=== PATIENT | female | born 1990 | race Caucasian/White ===

== ENCOUNTER 2018-01-26 22:23 | Emergency (ER) | payer SELFPAY ==
--- NOTE | 2018-01-26 23:19 | ER Document Report ---
ED General - General Chief Complaint: Abdominal Pain Stated Complaint: ABDOMINAL PAIN ,CHEST PAIN Time Seen by Provider: 01/26/18 23:17 Mode of Arrival: Ambulatory Information source: Patient Notes: 27-year-old female with 3 of PCOs presents with complaint of nausea, vomiting and abdominal pain. Patient states nausea started 3 days prior to arrival. She states her abdominal pain also started 3 days ago. She describes it as cramping, located in the suprapubic, and without radiation. Patient describes the pain as intermittent. She has not taken any medication for this. Patient denies any dysuria, hematuria, vaginal discharge. She is sexually active and is not currently on control but has had a tubal ligation after last 10 months ago. Patient denies fever, chills, chest pain, shortness of breath, recent travel, recent antibiotic use, sick contacts. Patient's last menstrual period was 12/24/2017. Patient denies concern for STD. TRAVEL OUTSIDE OF THE [place] IN LAST 30 DAYS: No - HPI Onset: Other Onset/Duration: Gradual, Intermittent Quality of pain: Cramping Associated symptoms: Nausea, Vomiting. denies: Chest pain, Diarrhea, Fever, Shortness of breath Exacerbated by: Denies Relieved by: Denies Similar symptoms previously: Yes - Yes when Recently seen / treated by doctor: No - Related Data Allergies/Adverse Reactions: kiwi [Kiwi (Actinidia Chinensis)] Allergy (Mild, Verified 01/26/18 22:23) Hives peanut [Peanut] Allergy (Mild, Verified 01/26/18 22:23) Hives Latex, Natural Rubber Allergy (Verified 01/26/18 22:23) Past Medical History - General Information source: Patient, [facility] Records - Social History Smoking Status: Never Smoker Frequency of alcohol use: Occasional Drug Abuse: None Lives with: Family Family History: Reviewed & Not Pertinent Patient has suicidal ideation: No Patient has homicidal ideation: No - Medical History Medical History: Negative Renal/ Medical History: Reports: Hx Kidney Stones Past Surgical History: Reports: Hx Section - Immunizations Hx Diphtheria, Pertussis, Tetanus Vaccination: Yes Review of Systems - Review of Systems Notes: REVIEW OF SYSTEMS: CONSTITUTIONAL : Denies fever, chills, or sweats. Denies recent illness. Denies weight loss, recent hospitalizations. EENT: Denies visula changes, eye pain. Denies nasal or sinus congestion or discharge. Denies sore throat, oral lesions, difficulty swallowing. CARDIOVASCULAR: Denies chest pain. Denies palpitations or racing or irregular heart beat. Denies lower extremity edema. RESPIRATORY: Denies cough, cold, or chest congestion. Denies shortness of breath, difficulty breathing, or wheezing. GASTROINTESTINAL: Denies abdominal distention. Denies or diarrhea. Denies blood in vomitus, stools, or per rectum. Denies black, tarry stools. Denies constipation. GENITOURINARY: Denies difficulty urinating, painful urination, burning, frequency, blood in urine, or vaginal discharge/bleeding. MUSCULOSKELETAL: Denies back or neck pain or stiffness. Denies joint pain or swelling. SKIN: Denies rash, lesions or sores. HEMATOLOGIC : Denies easy bruising or bleeding. LYMPHATIC: Denies swollen, enlarged glands. NEUROLOGICAL: Denies confusion or altered mental status. Denies passing out or loss of consciousness. Denies dizziness or lightheadedness. Denies headache. Denies weakness or paralysis or loss of use of either side. Denies problems with gait or speech. Denies sensory loss, numbness, or tingling. Denies seizures. PSYCHIATRIC: Denies anxiety or stress. Denies depression, suicidal ideation, or homicidal ideation. Physical Exam - Vital signs Vitals: Temp Pulse Resp BP Pulse Ox 99.1 F 90 20 113/70 99 01/26/18 22:44 01/26/18 22:44 01/26/18 22:44 01/26/18 22:44 01/26/18 22:44 - Notes Notes: PHYSICAL EXAMINATION: GENERAL: Well-appearing, well-nourished and in no acute distress. HEAD: Normocephalic, atraumatic. EYES: Pupils equal round and reactive to light, extraocular movements intact, conjunctiva are normal. ENT: Nares patent, oropharynx clear without exudates. Moist mucous membranes. NECK: Normal range of motion, supple without lymphadenopathy LUNGS: Breath sounds clear to auscultation bilaterally and equal. No wheezes rales or rhonchi. HEART: Regular rate and rhythm without murmurs ABDOMEN: Soft, nontender, nondistended abdomen. No guarding, no rebound. No masses appreciated. Female : No external vaginal lesion, no vaginal bleeding, no discharge, No CMT. OS closed. No adenexal tenderness Musculoskeletal: Normal range of motion, no pitting or edema. No cyanosis. NEUROLOGICAL: Cranial nerves grossly intact. Normal speech, normal gait. Normal sensory, motor exams PSYCH: Normal mood, normal affect. SKIN: Warm, Dry, normal turgor, no rashes or lesions noted. Course - Re-evaluation Re-evalutation: Laboratory 01/26/18 01/26/18 01/27/18 22:45 22:45 00:01 WBC 9.7 RBC 4.49 Hgb 11.9 L Hct 36.4 MCV 81 MCH 26.4 L MCHC 32.7 RDW 15.3 H Plt Count 250 Seg Neutrophils % 62.0 Lymphocytes % 31.7 Monocytes % 5.4 Eosinophils % 0.5 Basophils % 0.4 Absolute Neutrophils 6.0 Absolute Lymphocytes 3.1 Absolute Monocytes 0.5 Absolute Eosinophils 0.1 Absolute Basophils 0.0 Sodium Potassium Chloride Carbon Dioxide Anion Gap BUN Creatinine Est GFR ( Amer) Est GFR (Non-Af Amer) Glucose Calcium Total Bilirubin Direct Bilirubin Neonat Total Bilirubin Neonat Direct Bilirubin Neonat Indirect Bili AST ALT Alkaline Phosphatase Total Protein Albumin Beta HCG, Quant Total Beta HCG Urine Color YELLOW Urine Appearance CLEAR Urine pH 5.0 Ur Specific [place] 1.015 Urine Protein NEGATIVE Urine Glucose (UA) NEGATIVE Urine Ketones NEGATIVE Urine Blood NEGATIVE Urine Nitrite NEGATIVE Urine Bilirubin NEGATIVE Urine Urobilinogen NEGATIVE Ur Leukocyte Esterase NEGATIVE Urine WBC (Auto) 4 Urine RBC (Auto) 1 U Hyaline Cast (Auto) 1 Urine Bacteria (Auto) 2+ Squamous Epi Cells Auto 1 Urine Mucus (Auto) FEW Urine Ascorbic Acid NEGATIVE Urine HCG, Qual POSITIVE H Trichomonas (Wet Prep) Vaginal WBC Vaginal Yeast Chlamydia DNA (PCR) N.gonorrhoeae DNA (PCR) Blood Type Rhogam Indicated 01/27/18 01/27/18 01/27/18 00:01 00:01 00:12 WBC RBC Hgb Hct MCV MCH MCHC RDW Plt Count Seg Neutrophils % Lymphocytes % Monocytes % Eosinophils % Basophils % Absolute Neutrophils Absolute Lymphocytes Absolute Monocytes Absolute Eosinophils Absolute Basophils Sodium 141.5 Potassium 3.7 Chloride 107 Carbon Dioxide 24 Anion Gap 11 BUN 8 Creatinine 0.73 Est GFR ( Amer) > 60 Est GFR (Non-Af Amer) > 60 Glucose 109 Calcium 9.4 Total Bilirubin 0.2 Direct Bilirubin 0.2 Neonat Total Bilirubin Not Reportable Neonat Direct Bilirubin Not Reportable Neonat Indirect Bili Not Reportable AST 18 ALT 33 Alkaline Phosphatase 74 Total Protein 7.1 Albumin 4.0 Beta HCG, Quant 55.96 H Total Beta HCG POSITIVE Urine Color Urine Appearance Urine pH Ur Specific [place] Urine Protein Urine Glucose (UA) Urine Ketones Urine Blood Urine Nitrite Urine Bilirubin Urine Urobilinogen Ur Leukocyte Esterase Urine WBC (Auto) Urine RBC (Auto) U Hyaline Cast (Auto) Urine Bacteria (Auto) Squamous Epi Cells Auto Urine Mucus (Auto) Urine Ascorbic Acid Urine HCG, Qual Trichomonas (Wet Prep) Vaginal WBC Vaginal Yeast Chlamydia DNA (PCR) NOT DETECTED N.gonorrhoeae DNA (PCR) NOT DETECTED Blood Type Rhogam Indicated 01/27/18 01/27/18 01/27/18 00:12 01:44 04:14 WBC RBC Hgb Hct MCV MCH MCHC RDW Plt Count Seg Neutrophils % Lymphocytes % Monocytes % Eosinophils % Basophils % Absolute Neutrophils Absolute Lymphocytes Absolute Monocytes Absolute Eosinophils Absolute Basophils Sodium Potassium Chloride Carbon Dioxide Anion Gap BUN Creatinine Est GFR ( Amer) Est GFR (Non-Af Amer) Glucose Calcium Total Bilirubin Direct Bilirubin Neonat Total Bilirubin Neonat Direct Bilirubin Neonat Indirect Bili AST ALT Alkaline Phosphatase Total Protein Albumin Beta HCG, Quant 53.39 H Total Beta HCG POSITIVE Urine Color Urine Appearance Urine pH Ur Specific [place] Urine Protein Urine Glucose (UA) Urine Ketones Urine Blood Urine Nitrite Urine Bilirubin Urine Urobilinogen Ur Leukocyte Esterase Urine WBC (Auto) Urine RBC (Auto) U Hyaline Cast (Auto) Urine Bacteria (Auto) Squamous Epi Cells Auto Urine Mucus (Auto) Urine Ascorbic Acid Urine HCG, Qual Trichomonas (Wet Prep) NO TRICHOMONAS SEEN Vaginal WBC RARE WBCS SEEN Vaginal Yeast NO YEAST SEEN Chlamydia DNA (PCR) N.gonorrhoeae DNA (PCR) Blood Type A POSITIVE Rhogam Indicated RHOGAM NOT INDICATED Obstetrics Ultrasound 01/27/18 01:24 IMPRESSION: No intrauterine confirmed. Differential diagnosis includes early viable intrauterine gestation, gestational loss, and occult ECTOPIC gestation. Recommend 48 -72 hours laboratory/sonographic surveillance. 27-year-old female with 3 of PCOs presents with complaint of nausea, vomiting and abdominal pain. Patient states nausea started 3 days prior to arrival. She states her abdominal pain also started 3 days ago. She describes it as cramping, located in the suprapubic, and without radiation. Patient was seen by myself upon arrival. Vital signs were reviewed. Patient is afebrile, normotensive and not hypoxic. Patient does not appear toxic or dehydrated. They are in no acute distress. Previous medical records and nursing notes reviewed. Significant findings include positive urine hCG and a beta quant of 55. Pelvic exam performed and without vaginal bleeding, vaginal discharge. Trans-vaginal ultrasound obtained, reviewed. Ultrasound reading was delayed so I did contact [employer] nutrition manager and requested their review of the images. 01/27/18 03:45 Spoke to OB nutrition manager who agrees to review the ultrasound. There is obvious concern for a female with history of tubal ligation and a positive for possible ectopic. Dr. Gregorio David states that with a quant of 55 her only recommendation at this time is pain control, repeat hCG and possible reevaluation with ultrasound once quant is over 2000. 01/27/18 03:55 Dr. Gregorio David from [employer] called me after reviewing patient's transvaginal ultrasound. She states that there is a gestational sac in the uterus but is surprised that we are able to see anything with a quant of 55. She recommends repeat quant at this time, as she is suspicious of lab error. Still her recommendations at this time are pain control, repeat quant in 48 hours and repeat ultrasound after quant has reached 2000 or greater Patient provided the opportunity to ask questions, and express concerns. Discharge instructions discussed. Patient is agreeable with discharge home. Return indications explained and discussed with the patient who displays understanding. Patient encouraged to return to the emergency department immediately with any concerns.. Ultrasound report not available upon time of discharge. Repeat HCG still 55. Patient urged to return with worsening pain, vaginal bleeding. Orders for repeat hCG in 48 hours were placed. Will contact the patient regarding recommendations for repeat ultrasound as well in 48-72 hours. Patient remained hemodynamically stable throughout her ED course. She did receive Zofran for nausea. She has had no vaginal bleeding, episodes of vomiting. We will follow the patient to encourage repeat testing as discussed repeat quant and ultrasound in 48-72 hours and when quant 2000-U/S. 01/27/18 08:01 01/27/18 08:06 01/27/18 08:06 01/28/18 21:56 - Vital Signs Vital signs: Temp Pulse Resp BP Pulse Ox 99.1 F 82 18 117/72 98 01/26/18 22:44 01/27/18 05:17 01/27/18 05:17 01/27/18 05:17 01/27/18 05:17 - Laboratory Result Diagrams: 01/27/18 00:01 01/27/18 00:01 Laboratory results interpreted by me: 01/26/18 01/27/18 01/27/18 22:45 00:01 00:01 Hgb 11.9 L MCH 26.4 L RDW 15.3 H Beta HCG, Quant 55.96 H Urine HCG, Qual POSITIVE H 01/27/18 04:14 Hgb MCH RDW Beta HCG, Quant 53.39 H Urine HCG, Qual - Diagnostic Test Radiology reviewed: Image reviewed Discharge - Discharge Clinical Impression: First trimester , Abdominal pain during in first trimester Nausea & vomiting Qualifiers: Vomiting type: unspecified Vomiting Intractability: non-intractable Qualified Code(s): R11.2 - Nausea with vomiting, unspecified Condition: Good Disposition: HOME, SELF-CARE Instructions: Pelvic Pain in ([facility]), Vomiting ([facility]) Additional Instructions: Please return immediately to the emergency department if you experience worsening pain, vaginal bleeding. Please return and 48 hours for repeat hormone level. Please report to the ER administrative assistant front desk and tell them that you are here for repeat laboratory testing. Prescriptions: Ondansetron [Zofran Odt 4 mg Tablet] 1 tab PO Q4H PRN #15 tab.rapdis PRN Reason: For Nausea/Vomiting Forms: Follow-Up Laboratory Testing Referrals: KRISTAL NGUYEN NP [NURSE PRACTITIONER] - Follow up as needed HALEY MURPHY MD [[facility]] - Follow up in 3-5 days [facility] [NO [facility]AL MD] - Follow up as needed
[2018-01-26 23:24] LABS: APPEARANCE,URINE CLEAR; BILIRUBIN,URINE NEGATIVE (NEGATIVE); COLOR,URINE YELLOW; GLUCOSE, URINE NEGATIVE (NEGATIVE); KETONES,URINE NEGATIVE (NEGATIVE); LEUKOCYTE ESTERASE,URINE NEGATIVE (NEGATIVE); NITRITE,URINE NEGATIVE (NEGATIVE); PROTEIN,URINE NEGATIVE (NEGATIVE); URINE SPECIFIC GRAVITY 1.015; UROBILINOGEN,URINE NEGATIVE mg/dL (<2.0)
[2018-01-27 00:12] LABS: ABSOLUTE EOSINOPHILS # (AUTO) 0.1 10^3/uL (0.0-0.6); ABSOLUTE LYMPHOCYTES (AUTO) 3.1 10^3/uL (0.5-4.7); ABSOLUTE MONOCYTES (AUTO) 0.5 10^3/uL (0.1-1.4); BASOPHILS % (AUTO) 0.4 % (0-2); EOSINOPHILS % (AUTO) 0.5 % (0-6); HEMATOCRIT 36.4 % (36.0-47.0); HEMOGLOBIN 11.9 g/dL (12.0-15.5); LYMPHOCYTES % (AUTO) 31.7 % (13-45); MEAN CORPUSCULAR HEMOGLOBIN 26.4 pg (27.0-33.4); MEAN CORPUSCULAR HGB CONC 32.7 g/dL (32.0-36.0); MEAN CORPUSCULAR VOLUME 81 fl (80-97); MONOCYTES % (AUTO) 5.4 % (3-13); PLATELET COUNT 250 10^3/uL (150-450); RED BLOOD COUNT 4.49 10^6/uL (3.72-5.28); RED CELL DISTRIBUTION WIDTH 15.3 % (11.5-14.0); TOTAL CELLS COUNTED % (AUTO) 100 %; WHITE BLOOD COUNT 9.7 10^3/uL (4.0-10.5)
[2018-01-27 00:30] LABS: T.VAGINALIS (WET MOUNT) NO TRICHOMONAS SEEN; WBCS (WET MOUNT) RARE WBCS SEEN; YEAST (WET MOUNT) NO YEAST SEEN
[2018-01-27 00:46] LABS: ALANINE AMINOTRANSFERASE 33 U/L (9-52); ALKALINE PHOSPHATASE 74 U/L (38-126); ANION GAP 11 (5-19); ASPARTATE AMINO TRANSFERASE 18 U/L (14-36); BILIRUBIN,DIRECT 0.2 mg/dL (0.0-0.4); BILIRUBIN,TOTAL 0.2 mg/dL (0.2-1.3); BLOOD UREA NITROGEN 8 mg/dL (7-20); CALCIUM 9.4 mg/dL (8.4-10.2); CARBON DIOXIDE 24 mmol/L (22-30); CHLORIDE 107 mmol/L (98-107); GLUCOSE 109 mg/dL (75-110); POTASSIUM 3.7 mmol/L (3.6-5.0); SODIUM 141.5 mmol/L (137-145); TOTAL PROTEIN 7.1 g/dL (6.3-8.2)
[2018-01-27 01:56] LABS: CHLAM PCR NOT DETECTED (NOT DETECT); GON PCR NOT DETECTED (NOT DETECT)
[2018-01-27] MEDS ORDERED: ONDANSETRON 4 MG TAB.RAPDIS PO ONE (04:19)
--- NOTE | 2018-01-27 05:16 | RADIOLOGY REPORT (SQ) ---
EXAM DESCRIPTION: US TRANSVAGINAL CLINICAL HISTORY: 27 years Female, + and h/o tubal ligation Comparison: None. TECHNIQUE: Transvaginal. LIMITATIONS: None. FINDINGS: No intrauterine gestation confirmed. There is an irregular intrauterine cystic fluid collection with possible decidual reaction which may indicate an irregualar gestational sac; if it were viable, mean sac diameter of 8.2 mm corresponds with gestational age of five weeks and four days. No pole. No cardiac activity. No yolk sac. 2.8-cm right ovary, 3.9-cm left ovary, 1.9-cm possible left corpus luteum, 3.9-cm cervical length, and minimal free fluid. IMPRESSION: No intrauterine confirmed. Differential diagnosis includes early viable intrauterine gestation, gestational loss, and occult ECTOPIC gestation. Recommend 48 -72 hours laboratory/sonographic surveillance.
[2018-01-27 05:19] VITALS: BP 117/72
== END 2018-01-27 05:13 | disposition home or self-care (01) ==
LOC: ER 22:23
DX: O26.891 Other specified pregnancy related conditions, first trimester (principal); R10.30 Lower abdominal pain, unspecified; O21.9 Vomiting of pregnancy, unspecified; Z3A.01 Less than 8 weeks gestation of pregnancy; Z98.51 Tubal ligation status; Z87.442 Personal history of urinary calculi; Z91.018 Allergy to other foods; Z91.010 Allergy to peanuts; Z91.040 Latex allergy status
CPT/HCPCS: 99284; 86900; 86901; 36415; 87210; 84702; 85025; 81025; 80053; 81001; 87491; 87591; 76817; S0119

== ENCOUNTER → 2018-01-29 | Outpatient (CLI) | payer MEDICAID | LOC: LAB 13:59 | PROVIDERS: ATTEND Student in an Organized Health Care Education/Training Program | DX: O26.899 Other specified pregnancy related conditions, unspecified trimester (principal); R10.2 Pelvic and perineal pain | CPT/HCPCS: 36415; 84702 ==

== ENCOUNTER 2018-01-31 16:15 | Emergency (ER) | payer OTHER, MEDICAID ==
--- NOTE | 2018-01-31 17:01 | ER Document Report ---
ED Medical Screen (RME) - General Chief Complaint: OB Problem (<20wks) Stated Complaint: ABNORMAL LABS Time Seen by Provider: 01/31/18 16:55 Notes: RAPID MEDICAL EVALUATION DISCLOSURE I have seen this patient as part of a Rapid Medical Evaluation and, if applicable, placed any initially appropriate orders. The patient will be seen and fully evaluated, including a full history and physical exam, by a provider ( in Main ED or Fast Track) when a room becomes available. 27-year-old female PMH tubal ligation last year here because of elevated hCG levels over the past 1-2 weeks. She has been here several times and has had a progressively increasing has had a progressively increasing progressively increase hCG level. She was told to come back here for a repeat hCG level and transvaginal ultrasound. She does not complain of any current abdominal pain discharge or bleeding. TRAVEL OUTSIDE OF THE [place] IN LAST 30 DAYS: No - Related Data Allergies/Adverse Reactions: kiwi [Kiwi (Actinidia Chinensis)] Allergy (Mild, Verified 01/31/18 16:17) Hives peanut [Peanut] Allergy (Mild, Verified 01/31/18 16:17) Hives Latex, Natural Rubber Allergy (Verified 01/31/18 16:17) Past Medical History - Social History Chew tobacco use (# tins/day): No Frequency of alcohol use: Rare Drug Abuse: None Renal/ Medical History: Reports: Hx Kidney Stones. Denies: Hx Peritoneal Dialysis Past Surgical History: Reports: Hx Section - Immunizations Hx Diphtheria, Pertussis, Tetanus Vaccination: Yes Physical Exam - Vital signs Vitals: Temp Pulse Resp BP Pulse Ox 98.3 F 79 16 121/70 100 01/31/18 16:19 01/31/18 16:19 01/31/18 16:19 01/31/18 16:19 01/31/18 16:19 Course - Vital Signs Vital signs: Temp Pulse Resp BP Pulse Ox 98.3 F 79 16 121/70 100 01/31/18 16:19 01/31/18 16:19 01/31/18 16:19 01/31/18 16:19 01/31/18 16:19
[2018-01-31 17:25] LABS: ABSOLUTE EOSINOPHILS # (AUTO) 0.1 10^3/uL (0.0-0.6); ABSOLUTE LYMPHOCYTES (AUTO) 2.7 10^3/uL (0.5-4.7); ABSOLUTE MONOCYTES (AUTO) 0.5 10^3/uL (0.1-1.4); ABSOLUTE NEUT (AUTO) 4.5 10^3/uL (1.7-8.2); BASOPHILS % (AUTO) 0.3 % (0-2); EOSINOPHILS % (AUTO) 0.8 % (0-6); HEMATOCRIT 36.2 % (36.0-47.0); LYMPHOCYTES % (AUTO) 34.2 % (13-45); MEAN CORPUSCULAR HEMOGLOBIN 27.1 pg (27.0-33.4); MEAN CORPUSCULAR HGB CONC 33.3 g/dL (32.0-36.0); MEAN CORPUSCULAR VOLUME 81 fl (80-97); MONOCYTES % (AUTO) 6.5 % (3-13); PLATELET COUNT 245 10^3/uL (150-450); RED BLOOD COUNT 4.45 10^6/uL (3.72-5.28); RED CELL DISTRIBUTION WIDTH 15.1 % (11.5-14.0); SEGMENTED NEUTROPHILS % (AUTO) 58.2 % (42-78); TOTAL CELLS COUNTED % (AUTO) 100 %; WHITE BLOOD COUNT 7.8 10^3/uL (4.0-10.5)
--- NOTE | 2018-01-31 17:34 | ER Document Report ---
ED General - General Chief Complaint: OB Problem (<20wks) Stated Complaint: ABNORMAL LABS Time Seen by Provider: 01/31/18 16:55 TRAVEL OUTSIDE OF THE [place] IN LAST 30 DAYS: No - HPI Notes: Patient is a 27-year-old female G 14 P3 with a history of polycystic ovarian syndrome who presents to the ED for reevaluation as she has had elevated hCG and questionable gestational sac on ultrasound about 4 days ago. She was last evaluated 5 days ago here in the emergency department. Patient states that aside from some nausea she is otherwise asymptomatic. She is still eating and drinking without difficulties. She is urinating charge, odor, or bleeding. Patient had a pelvic exam performed at last visit with STD testing which was all unremarkable. No other concerns or complaints at this time. Denies any headache, fever, URI, sore throat, chest pain, palpitations, syncope, cough, shortness of breath, wheeze, dyspnea, abdominal pain, vomiting/diarrhea, urinary retention, dysuria, hematuria, back pain, loss of control of bowel or bladder, numbness/tingling, saddle anesthesia, muscle paralysis/weakness, or rash. - Related Data Allergies/Adverse Reactions: kiwi [Kiwi (Actinidia Chinensis)] Allergy (Mild, Verified 01/31/18 16:17) Hives peanut [Peanut] Allergy (Mild, Verified 01/31/18 16:17) Hives Latex, Natural Rubber Allergy (Verified 01/31/18 16:17) Past Medical History - Social History Smoking Status: Former Smoker Chew tobacco use (# tins/day): No Frequency of alcohol use: Rare Drug Abuse: None Family History: Reviewed & Not Pertinent Patient has suicidal ideation: No Patient has homicidal ideation: No Renal/ Medical History: Reports: Hx Kidney Stones. Denies: Hx Peritoneal Dialysis Past Surgical History: Reports: Hx Section - Immunizations Hx Diphtheria, Pertussis, Tetanus Vaccination: Yes Review of Systems - Review of Systems -: Yes All other systems reviewed and negative Physical Exam - Vital signs Vitals: Temp Pulse Resp BP Pulse Ox 98.3 F 79 16 121/70 100 01/31/18 16:19 01/31/18 16:19 01/31/18 16:19 01/31/18 16:19 01/31/18 16:19 - Notes Notes: PHYSICAL EXAMINATION: GENERAL: Well-appearing, well-nourished and in no acute distress. LUNGS: Breath sounds clear to auscultation bilaterally and equal. No wheezes rales or rhonchi. HEART: Regular rate and rhythm without murmurs, rubs, gallops. ABDOMEN: Soft, nontender, nondistended abdomen. No guarding, no rebound. No masses appreciated. Normal bowel sounds present. No CVA tenderness bilaterally. : deferred Extremities: No cyanosis, clubbing, or edema b/l. Peripheral pulses 2+. Capillary refill less than 3 seconds. NEUROLOGICAL: Normal speech, normal gait. PSYCH: Normal mood, normal affect. SKIN: Warm, Dry, normal turgor, no rashes or lesions noted. Course - Re-evaluation Re-evalutation: 01/31/18 20:27 Patient is an afebrile, well-hydrated, 27-year-old female who presents to the ED with an atypical positive hCG and ultrasound results. Vitals are acceptable without any significant tachycardia, tachypnea, or hypoxia. PE is otherwise unremarkable. Patient is otherwise asymptomatic aside from intermittent nausea. She is nontoxic-appearing and is tolerating p.o. without difficulties. Patient's quantitative hCG did increase by only 20 over the last 2 days to 140. Her transvaginal ultrasound does show an 11 mm gestational sac without yolk sac or poles noted. I did review this with Dr. Rodriguez, [facility], who agrees that this is not a typical presentation of a and that she should be evaluated in their office. Patient's abdomen is otherwise soft and nontender. Low suspicion for acute appendicitis, bowel obstruction, acute cholecystitis, acute cholangitis, perforated diverticulitis, incarcerated hernia , pancreatitis, perforated ulcer, peritonitis, sepsis, pelvic inflammatory disease, tubo-ovarian abscess, or other systemic emergent condition at this time. Patient is aware that her condition can change from initial presentation and she needs to monitor symptoms closely and seek medical attention if any acute changes. Rx for zofran. Conservative measures otherwise for symptoms. Recheck with OBGYN in 2-3 days. Recheck with your PCM in 2-3 days. Return to the ED with any worsening/concerning symptoms otherwise as reviewed in discharge. Patient is in agreement. - Vital Signs Vital signs: Temp Pulse Resp BP Pulse Ox 98.3 F 79 16 121/70 100 01/31/18 16:19 01/31/18 16:19 01/31/18 16:19 01/31/18 16:19 01/31/18 16:19 - Laboratory Result Diagrams: 01/31/18 17:00 01/31/18 17:00 Laboratory results interpreted by me: 01/31/18 01/31/18 17:00 17:00 RDW 15.1 H Chloride 108 H Total Bilirubin < 0.1 L Beta HCG, Quant 140.72 H Discharge - Discharge Clinical Impression: Elevated serum hCG Qualifiers: Weeks of gestation: unspecified Qualified Code(s): Z34.90 - Encounter for supervision of normal , unspecified, unspecified trimester Condition: Stable Disposition: HOME, SELF-CARE Additional Instructions: Maintain adequate fluid and food intake [place] diet ([employer] Bananas, rice, apples, toast, etc Zofran as needed tylenol if needed Monitor for any worsening symptoms Make sure you are staying hydrated enough to urinate and have normal BM's Recheck with your PCM in 2-3 days Call the women's clinic tomorrow to schedule an appointment for further evaluation and management* Return to the ED with any worsening symptoms and/or development of fever, headache, chest pain, palpitations, syncope, shortness of breath, trouble breathing, abdominal pain, n/v/d, blood in stool/urine, weakness, or other worsening symptoms that are concerning to you. Prescriptions: Ondansetron [Zofran Odt 4 mg Tablet] 1 - 2 tab PO Q4H PRN #15 tab.rapdis PRN Reason: For Nausea/Vomiting Referrals: FLAVIA RODRIGUEZ MD [ACTIVE STAFF] - Follow up in 3-5 days
[2018-01-31 17:45] LABS: ALANINE AMINOTRANSFERASE 31 U/L (9-52); ALBUMIN 4.1 g/dL (3.5-5.0); ALKALINE PHOSPHATASE 74 U/L (38-126); ANION GAP 12 (5-19); ASPARTATE AMINO TRANSFERASE 18 U/L (14-36); BLOOD UREA NITROGEN 8 mg/dL (7-20); CALCIUM 9.4 mg/dL (8.4-10.2); CARBON DIOXIDE 23 mmol/L (22-30); CHLORIDE 108 mmol/L (98-107); GLUCOSE 79 mg/dL (75-110); TOTAL PROTEIN 7.2 g/dL (6.3-8.2)
[2018-01-31 18:07] LABS: BILIRUBIN,TOTAL < 0.1 mg/dL (0.2-1.3)
--- NOTE | 2018-01-31 20:09 | RADIOLOGY REPORT (SQ) ---
EXAM DESCRIPTION: U/S OB TRANSVAGINAL W/O DOP COMPLETED DATE/TIME: 01/31/2018 7:42 pm REASON FOR STUDY: s/p TBL, now +HCG; eval tubal COMPARISON: None. TECHNIQUE: Transvaginal static and realtime grayscale images acquired of the pelvis. Additional alvaro cted spectral and color Doppler images recorded. All images stored on PACs. [facility] CLINICAL DATES: 5 weeks 3 days LIMITATIONS: None. FINDINGS: 11 mm irregular intrauterine presumed gestational sac without yolk sac or discrete p ole identified. UTERUS: No masses. No anomalies. CERVICAL LENGTH: 3.6 cm Closed. RIGHT ADNEXA: Ovary not identified. Small amount of right adnexal free fluid. No adnexal masses identified. LEFT ADNEXA: Normal ovary with normal vascular flow. No adnexal free fluid. No adnexal masses. FREE FLUID: Right adnexal and cul-de-sac free fluid. OTHER: No other significant finding. IMPRESSION: 11 mm irregular intrauterine presumed gestational sac without yolk sac or discrete pole identified. Right adnexal and cul-de-sac free fluid. No adnexal masses identified. Ectopic pr egnancy cannot be excluded, Close follow-up recommended. Trimester of : First - 0 to 13 weeks. TECHNICAL DOCUMENTATION: JOB ID: [id number] 2010 [employer]- All Rights Reserved rev-01/04 Reading location - IP/workstation name: [email or web address]
[2018-01-31 20:53] VITALS: BP 116/78
== END 2018-01-31 20:45 | disposition home or self-care (01) ==
LOC: ER 16:15
DX: O26.91 Pregnancy related conditions, unspecified, first trimester (principal); Z3A.01 Less than 8 weeks gestation of pregnancy; Z91.040 Latex allergy status; Z91.010 Allergy to peanuts; Z91.018 Allergy to other foods; Z87.442 Personal history of urinary calculi
CPT/HCPCS: 36415; 76817; 80053; 84702; 85025; 99284

== ENCOUNTER 2019-07-22 13:59 | Emergency (ER) | payer MEDICAID ==
[2019-07-22] MEDS ORDERED: ONDANSETRON HCL INJ/PF 4 MG/2 ML SDV IV ONE (14:19)
[2019-07-22] MEDS ORDERED: NORMAL SALINE 1000 ML 1,000 ML IV ONE (14:19)
--- NOTE | 2019-07-22 14:19 | ER Document Report ---
ED Medical Screen (RME) - General Chief Complaint: Vomiting Stated Complaint: FEVER,SYNCOPE,VOMITING Time Seen by Provider: 07/22/19 14:13 TRAVEL OUTSIDE OF THE [place] IN LAST 30 DAYS: No - HPI Notes: 07/22/19 14:17 Patient is a 29-year-old female with history of hysterectomy presents complaining of nausea, vomiting, incisional site pain or hysterectomy was performed in December for the past couple weeks. She has not noticed any redness or purulence to the incision site. Patient states that she has had intermittent fevers and chills and near syncopal episode 2 days ago. She has had decreased p.o. intake. She still urinating normally and having normal bowel movements. No chest pain or shortness of breath. I have treated and performed a rapid initial assessment of this patient. A comprehensive ED assessment and evaluation of the patient, analysis of test results and completion of medical decision making process will be conducted by additional ED providers. PHYSICAL EXAMINATION: GENERAL: Well-appearing, well-nourished and in no acute distress. A&Ox4. Answers questions appropriately. Heart: RRR Lungs: CTAB - Related Data Allergies/Adverse Reactions: bee venom protein (honey bee) Allergy (Severe, Verified 07/22/19 14:10) Swelling of Throat kiwi [Kiwi (Actinidia Chinensis)] Allergy (Mild, Verified 07/22/19 14:09) Hives peanut [Peanut] Allergy (Mild, Verified 07/22/19 14:09) Hives Latex, Natural Rubber Allergy (Verified 07/22/19 14:09) Past Medical History Renal/ Medical History: Reports: Hx Kidney Stones. Denies: Hx Peritoneal Dialysis Past Surgical History: Reports: Hx Section - Immunizations Hx Diphtheria, Pertussis, Tetanus Vaccination: Yes Physical Exam - Vital signs Vitals: Temp Pulse Resp BP Pulse Ox 97.7 F 81 16 125/69 100 07/22/19 14:02 07/22/19 14:02 07/22/19 14:02 07/22/19 14:02 07/22/19 14:02 Course - Vital Signs Vital signs: Temp Pulse Resp BP Pulse Ox 97.7 F 81 16 125/69 100 07/22/19 14:02 07/22/19 14:02 07/22/19 14:02 07/22/19 14:02 07/22/19 14:02
[2019-07-22 14:54] LABS: ABSOLUTE LYMPHOCYTES (AUTO) 2.1 10^3/uL (0.5-4.7); ABSOLUTE MONOCYTES (AUTO) 0.4 10^3/uL (0.1-1.4); ABSOLUTE NEUT (AUTO) 4.1 10^3/uL (1.7-8.2); BASOPHILS % (AUTO) 0.3 % (0-2); EOSINOPHILS % (AUTO) 0.6 % (0-6); HEMATOCRIT 38.6 % (36.0-47.0); HEMOGLOBIN 12.7 g/dL (12.0-15.5); LYMPHOCYTES % (AUTO) 32.1 % (13-45); MEAN CORPUSCULAR HEMOGLOBIN 27.3 pg (27.0-33.4); MEAN CORPUSCULAR HGB CONC 32.9 g/dL (32.0-36.0); MEAN CORPUSCULAR VOLUME 83 fl (80-97); MONOCYTES % (AUTO) 5.4 % (3-13); PLATELET COUNT 211 10^3/uL (150-450); RED BLOOD COUNT 4.65 10^6/uL (3.72-5.28); RED CELL DISTRIBUTION WIDTH 15.8 % (11.5-14.0); SEGMENTED NEUTROPHILS % (AUTO) 61.6 % (42-78); TOTAL CELLS COUNTED % (AUTO) 100 %; WHITE BLOOD COUNT 6.6 10^3/uL (4.0-10.5)
[2019-07-22 15:12] LABS: ALBUMIN 4.3 g/dL (3.5-5.0); ALKALINE PHOSPHATASE 87 U/L (38-126); ANION GAP 10 (5-19); ASPARTATE AMINO TRANSFERASE 34 U/L (14-36); BILIRUBIN,DIRECT 0.1 mg/dL (0.0-0.4); BILIRUBIN,TOTAL 0.7 mg/dL (0.2-1.3); BLOOD UREA NITROGEN 12 mg/dL (7-20); CALCIUM 9.5 mg/dL (8.4-10.2); CARBON DIOXIDE 25 mmol/L (22-30); CHLORIDE 104 mmol/L (98-107); GLUCOSE 108 mg/dL (75-110); POTASSIUM 4.3 mmol/L (3.6-5.0); TOTAL PROTEIN 7.7 g/dL (6.3-8.2)
[2019-07-22 16:15] LABS: APPEARANCE,URINE CLOUDY; BILIRUBIN,URINE NEGATIVE (NEGATIVE); COLOR,URINE YELLOW; GLUCOSE, URINE NEGATIVE (NEGATIVE); KETONES,URINE NEGATIVE (NEGATIVE); PROTEIN,URINE NEGATIVE (NEGATIVE); URINE SPECIFIC GRAVITY 1.018; UROBILINOGEN,URINE NEGATIVE mg/dL (<2.0)
--- NOTE | 2019-07-22 16:33 | RADIOLOGY REPORT (SQ) ---
EXAM DESCRIPTION: U/S ABDOMEN LIMITED W/O DOP COMPLETED DATE/TIME: 07/22/2019 4:15 pm REASON FOR STUDY: eval incision site for pain of prev hysterectomy COMPARISON: None. TECHNIQUE: Dynamic and static grayscale images acquired of the localized site of clinical concern an d recorded on PACS. Additional selected color Doppler and spectral images recorded. SITE OF CONCERN: Incision site LIMITATIONS: None. FINDINGS: SKIN AND SUBCUTANEOUS TISSUES: No masses. No fluid collections. No edema. No foreign margarito s. DEEP SOFT TISSUES/MUSCLES: No masses. No fluid collections. No edema. VASCULAR: No increased or decreased vascularity. No occlusions. OTHER: No other significant finding. IMPRESSION: NO SOFT TISSUE MASS, FLUID COLLECTION, OR FOREIGN BODY. TECHNICAL DOCUMENTATION: JOB ID: [id number] [employer]- All Rights Reserved Reading location - IP/workstation name: [email or web address]
--- NOTE | 2019-07-22 17:01 | ER Document Report ---
ED General - General Chief Complaint: Nausea/Vomiting Stated Complaint: FEVER,SYNCOPE,VOMITING Time Seen by Provider: 07/22/19 14:13 Primary Care Provider: EDWIN KAM MD [Primary Care Provider] - Follow up as needed Mode of Arrival: Ambulatory Information source: Patient TRAVEL OUTSIDE OF THE [place] IN LAST 30 DAYS: No - HPI Notes: 29-year-old female 12 para 4 with incisional site pain with nausea and vomiting intermittently for the last couple of weeks. Patient states that she had a hysterectomy done in December 2018. States she does have some pain around the healed incision site from a . In triage labs and ultrasound as well as IV fluids were given. CBC negative for leukocytosis or anemia, CMP negative for hepatic or renal dysfunction, no electrolyte disturbances. Urinalysis is unremarkable. Patient states she does feel better after IV fluids and antinausea medication. Patient states that she has had a long-standing history of syncopal events in which has been worked up multiple times in which she has had multiple MRIs, CTs, which typically happens during her pregnancies but can happen intermittently. Patient states she has had this for well over 15 years, patient is not sure and having a syncopal work-up at this time and did not come to the emergency room for syncopal work-up, states she came to the emergency room because her employer told her she had come to the emergency room for evaluation of her surgical incision because her employer had a bad experience with having a postsurgical infection in her history, the patient states this is what brings her to the emergency room. Abdominal ultrasound unremarkable. Denies fevers, chills, chest pain,palpitations, shortness of breath, dyspnea,diarrhea, abdominal pain, hematuria,blurred vision, double vision, loss of vision, speech changes, LH, dizziness, syncope, headaches, wheezing, ST, URI, neck pain, weakness, bowel or bladder dysfunction, saddle anesthesia, numbness or tingling in bilateral upper or lower extremities equally, muscle paralysis, weakness in bilateral upper or lower extremities equally or rash. Denies IV drug use. - Related Data Allergies/Adverse Reactions: bee venom protein (honey bee) Allergy (Severe, Verified 07/22/19 14:10) Swelling of Throat kiwi [Kiwi (Actinidia Chinensis)] Allergy (Mild, Verified 07/22/19 14:09) Hives peanut [Peanut] Allergy (Mild, Verified 07/22/19 14:09) Hives Latex, Natural Rubber Allergy (Verified 07/22/19 14:09) Home Medications: IRON SUPPLEMENTS. Past Medical History - General Information source: Patient - Social History Smoking Status: Former Smoker Frequency of alcohol use: None Drug Abuse: None Family History: Reviewed & Not Pertinent Patient has suicidal ideation: No Patient has homicidal ideation: No Renal/ Medical History: Reports: Hx Kidney Stones. Denies: Hx Peritoneal Dialysis Past Surgical History: Reports: Hx Section - Immunizations Hx Diphtheria, Pertussis, Tetanus Vaccination: Yes Review of Systems - Review of Systems Constitutional: No symptoms reported EENT: No symptoms reported Cardiovascular: No symptoms reported Respiratory: No symptoms reported Gastrointestinal: See HPI Genitourinary: No symptoms reported Female Genitourinary: No symptoms reported Musculoskeletal: No symptoms reported Skin: See HPI Hematologic/Lymphatic: No symptoms reported Neurological/Psychological: No symptoms reported Physical Exam - Vital signs Vitals: Temp Pulse Resp BP Pulse Ox 97.7 F 81 16 125/69 100 07/22/19 14:02 07/22/19 14:02 07/22/19 14:02 07/22/19 14:02 07/22/19 14:02 - Notes Notes: PHYSICAL EXAMINATION: reviewed vital signs by RN GENERAL: Well-appearing, well-nourished and in no acute distress. HEAD: Atraumatic, normocephalic. EYES: Pupils equal round and reactive to light, extraocular movements intact, conjunctiva are normal. ENT: Nares patent, oropharynx clear without exudates. Moist mucous membranes. NECK: Normal range of motion, supple without lymphadenopathy LUNGS: Breath sounds clear to auscultation bilaterally and equal. No wheezes rales or rhonchi. HEART: Regular rate and rhythm without murmurs ABDOMEN: Soft, nontender, nondistended abdomen. No guarding, no rebound. No masses appreciated. No CVA tenderness bilaterally Female : deferred Musculoskeletal: Normal range of motion, no pitting or edema. No cyanosis. NEUROLOGICAL: Cranial nerves grossly intact. Normal speech, normal gait. Normal sensory, motor exams PSYCH: Normal mood, normal affect. SKIN: Warm, Dry, normal turgor, no rashes or lesions noted. Noted well-healed surgical incision from the umbilicus down to the suprapubic area, no erythema induration or warmth to touch. Patient states that she has tenderness with palpation. No open wounds or drainage Course - Re-evaluation Re-evalutation: 07/22/19 17:37 Afebrile vital stable no distress. Nurse's notes reviewed. CBC negative for leukocytosis or anemia, CMP negative for hepatic or renal dysfunction, no electrolyte disturbances. Lipase is normal. Urinalysis is unremarkable. Abdominal ultrasound unremarkable no free fluid. Advised to monitor symptoms, take Zofran as needed for nausea. To follow-up with primary care provider if her symptoms become worse. After performing a Medical Screening Examination, I estimate there is LOW risk for ACUTE APPENDICITIS, BOWEL OBSTRUCTION, ACUTE CHOLECYSTITIS, PERFORATED DIVERTICULITIS, INCARCERATED HERNIA, PANCREATITIS, PELVIC INFLAMMATORY DISEASE, PERFORATED ULCER, ECTOPIC , or TUBO- OVARIAN ABSCESS, thus I consider the discharge disposition reasonable. Also, there is no evidence or peritonitis, sepsis, or toxicity. I have reevaluated this patient multiple times and no significant life threatening changes are noted. The patient and I have discussed the diagnosis and risks, and we agree with discharging home with close follow-up with the understanding that symptoms and presentations can change. We also discussed returning to the Emergency Department immediately if new or worsening symptoms occur. We have discussed the symptoms which are most concerning (e.g., bloody stool, fever, changing or worsening pain, vomiting) that necessitate immediate return. - Vital Signs Vital signs: Temp Pulse Resp BP Pulse Ox 97.7 F 81 16 125/69 100 07/22/19 14:13 07/22/19 14:13 07/22/19 14:13 07/22/19 14:13 07/22/19 14:13 - Laboratory Result Diagrams: 07/22/19 14:30 07/22/19 14:30 Laboratory results interpreted by me: 07/22/19 14:30 RDW 15.8 H Discharge - Discharge Clinical Impression: Vomiting Condition: Stable Disposition: HOME, SELF-CARE Instructions: Antinausea Medication ([facility]), Intravenous (IV) Fluids ([facility]), Vomiting ([facility]) Additional Instructions: Your lab work, urinalysis and your ultrasound were all normal. Take anti-nausea medication as needed, stay hydrated, follow-up with your primary care provider if your symptoms are persistent, if your symptoms become worse return to the emergency room. Return immediately for any new or worsening symptoms. Follow up with primary care provider, call tomorrow to make followup appointment. Prescriptions: Ondansetron [Zofran Odt 4 mg Tablet] 1 - 2 tab PO Q4H PRN #15 tab.rapdis PRN Reason: For Nausea/Vomiting Forms: Return to Work Referrals: EDWIN KAM MD [Primary Care Provider] - Follow up as needed
[2019-07-22 18:13] VITALS: BP 118/50
== END 2019-07-22 18:04 | disposition home or self-care (01) ==
LOC: ER 13:59
DX: R11.2 Nausea with vomiting, unspecified (principal); R50.9 Fever, unspecified; Z87.442 Personal history of urinary calculi; Z91.040 Latex allergy status; Z90.710 Acquired absence of both cervix and uterus
CPT/HCPCS: 99284; 96361; 96374; 36415; 83690; 85025; 81025; 80053; 81001; 76705; J2405; J7030

== ENCOUNTER 2020-01-16 09:22 | Emergency (ER) | payer MEDICAID ==
[2020-01-16 10:32] LABS: APPEARANCE,URINE SLIGHTLY-CLOUDY; BILIRUBIN,URINE NEGATIVE (NEGATIVE); COLOR,URINE YELLOW; GLUCOSE, URINE NEGATIVE (NEGATIVE); KETONES,URINE NEGATIVE (NEGATIVE); LEUKOCYTE ESTERASE,URINE NEGATIVE (NEGATIVE); NITRITE,URINE NEGATIVE (NEGATIVE); PROTEIN,URINE NEGATIVE (NEGATIVE); URINE SPECIFIC GRAVITY 1.019; UROBILINOGEN,URINE NEGATIVE mg/dL (<2.0)
--- NOTE | 2020-01-16 12:08 | ER Document Report ---
ED General - General Chief Complaint: Nausea/Vomiting/Diarrhea Stated Complaint: NAUSEA/VOMITING/DIARRHEA Primary Care Provider: EDWIN KAM MD [Primary Care Provider] - Follow up as needed Notes: 29-year-old female with a history of lactose intolerance presents emergency department complaining of diarrhea that she is been having for at least 4 times a day for the past 2 weeks associated with intermittent vomiting that has improved with Zofran 8 mg p.o. provided by her primary care physician this past Sunday but is still 1-2 times a day. Patient states that initially she thought the diarrhea was from her lactose intolerance but she cut out all dairy and it did not change. Diarrhea is nonbloody, non-mucousy and the emesis is nonbloody and nonbilious. Denies any new foods or new sources of water. Denies any exposures to anybody else with similar symptoms. Admits to fever to 103.2 last evening. States she thinks the fevers started approximately 1 week ago. Denies any abdominal pain with this. Denies any blood in her vomit. Patient did have an influenza swab performed on Sunday which was negative. TRAVEL OUTSIDE OF THE [place] IN LAST 30 DAYS: No - Related Data Allergies/Adverse Reactions: bee venom protein (honey bee) Allergy (Severe, Verified 07/22/19 14:10) Swelling of Throat kiwi [Kiwi (Actinidia Chinensis)] Allergy (Mild, Verified 07/22/19 14:09) Hives peanut [Peanut] Allergy (Mild, Verified 07/22/19 14:09) Hives Latex, Natural Rubber Allergy (Verified 07/22/19 14:09) Past Medical History - General Information source: Patient - Social History Smoking Status: Current Every Day Smoker Frequency of alcohol use: None Drug Abuse: None Family History: Reviewed & Not Pertinent Renal/ Medical History: Reports: Hx Kidney Stones. Denies: Hx Peritoneal Dialysis Past Surgical History: Reports: Hx Section - Immunizations Hx Diphtheria, Pertussis, Tetanus Vaccination: Yes Review of Systems - Review of Systems Constitutional: See HPI, Chills, Diaphoresis, Fever, Malaise, Weakness EENT: No symptoms reported Cardiovascular: No symptoms reported Respiratory: No symptoms reported Gastrointestinal: See HPI, Diarrhea, Nausea, Vomiting. denies: Abdominal pain -: Yes All other systems reviewed and negative Physical Exam - Vital signs Vitals: Temp 98.3 F 01/16/20 09:23 Interpretation: Normal - Notes Notes: GENERAL: Alert, interacts well. No acute distress. HEAD: Normocephalic, atraumatic EYES: Pupils equal, round and reactive to light, extraocular movements intact. ENT: Oral mucosa moist, tongue midline. NECK: Full range of motion, supple, trachea midline. LUNGS: Clear to auscultation bilaterally, no wheezes, rales or rhonchi, no respiratory distress. HEART: Regular rate and rhythm, no murmurs, gallops, rubs. ABDOMEN: Soft, nontender, nondistended, bowel sounds present in all 4 quadrants. EXTREMITIES: Moves all 4 extremities spontaneously, no edema, radial and dorsalis pedis pulses 2/4 bilaterally. No cyanosis. NEUROLOGICAL: Alert and oriented x3, normal speech. PSYCH: Normal mood, normal affect. SKIN: Warm, Dry, normal turgor, no rashes or lesions noted. Course - Re-evaluation Re-evalutation: 01/16/20 12:04 Urinalysis is normal, no ketones and no signs of dehydration. Patient is not . Given the fact that the patient has been having this diarrhea for 2 weeks and has absolutely no abdominal pain either on physical examination or at baseline and it is slowly improving and that the vomiting is getting better with Zofran there is no indication for CT scan at this time. Discussed with patient that with the urinalysis that shows no signs of dehydration blood work is unlikely to make a big difference at this time. I would like to collect a stool sample for her from her and send it for ova and parasites as well as culture. Patient is uncertain that she will be able to have a bowel movement here. Discussed with patient that she could do a stool sample at home and bring it in herself if she is unable to have a bowel movement here. Also discussed that GI symptoms can be a sign of coronavirus. Patient is anxious about the test but will try to allow us to collect this test. Recommended that the patient start taking Imodium as needed for her diarrhea after stool samples provided. 01/16/20 20:49 Unable to provide stool sample. Discharged home. - Vital Signs Vital signs: Temp Pulse Resp BP Pulse Ox 97.4 F 81 16 101/74 100 01/16/20 13:32 01/16/20 13:25 01/16/20 13:25 01/16/20 13:25 01/16/20 13:25 Discharge - Discharge Clinical Impression: Nausea vomiting and diarrhea Condition: Stable Disposition: HOME, SELF-CARE Additional Instructions: Diarrhea Diarrhea means frequent, watery stools. There are many causes. Any problem that keeps the intestinal tract from absorbing water from the stool can lead to diarrhea. A sudden new diarrhea problem is usually caused by a virus, food sensitivity, toxic bacteria, or drugs. In this case, we expect the problem to go away soon. Testing is done only if you seem seriously ill from the diarrhea. If you have chronic diarrhea, or diarrhea that keeps coming back, we need to find out why. Chronic diarrhea can be due to inflammation of the bowels such as Crohn's disease or ulcerative colitis, food sensitivity such as intolerance to lactose or wheat protein, irritable bowel syndrome, and other problems. If your diarrhea is a significant problem but it's not clear why you have it, we'll refer you to a specialist for further testing. During an episode of diarrhea, drink small amounts (two to six ounces) of clear liquids (soft drinks, sport drinks, herb teas, broth, etc). Take fluids frequently to prevent dehydration. It's usually not a problem to take mild anti- diarrhea medication such as Imodium as directed on the box. As the diarrhea eases, advance to small amounts of bland food (mashed potato, toast) for 24 nazanin rs. Call the physician if blood appears in your vomit or stool, if the abdominal pain worsens or becomes localized to one area, if you develop high fever, or if you become lightheaded and weak. The next time you have loose stool please try to collect it in the cup and bring it back to the hospital for testing for bacterial infections or parasites. I have prescribed Zofran and Phenergan for your nausea and vomiting. The Zofran will dissolve under your tongue and stop the vomiting, you may use the Phenergan to decrease your nausea as well if the Zofran does not completely relieve your nausea. You may also use Imodium as directed [id number] to help with your diarrhea. You were tested for coronavirus (COVID 19) but these results may take 7 days or more to come back. Please stay in your house until they are resulted back or until you have been completely symptom-free for at least 3 days. Prescriptions: Promethazine HCl [Phenergan 25 mg Tablet] 1 - 2 tab PO Q6HP PRN #15 tablet PRN Reason: Ondansetron [Zofran Odt 4 mg Tablet] 1 - 2 tab PO Q4H PRN #30 tab.rapdis PRN Reason: For Nausea/Vomiting Forms: Follow-Up Laboratory Testing, Return to Work Referrals: EDWIN KAM MD [Primary Care Provider] - Follow up as needed
[2020-01-16 13:26] VITALS: BP 101/74
== END 2020-01-16 13:32 | disposition home or self-care (01) ==
LOC: ER 09:22
DX: R19.7 Diarrhea, unspecified (principal); R11.2 Nausea with vomiting, unspecified; R50.9 Fever, unspecified; F17.200 Nicotine dependence, unspecified, uncomplicated; R53.81 Other malaise; R53.1 Weakness; Z91.030 Bee allergy status; Z91.018 Allergy to other foods; Z91.010 Allergy to peanuts; Z91.040 Latex allergy status; Z20.828 Contact with and (suspected) exposure to other viral communicable diseases
CPT/HCPCS: 81001; 81025; 87635; 99284; C9803